=== PATIENT | female | born 2000 | race Caucasian/White ===

== ENCOUNTER 2018-08-22 09:10 | Outpatient (CLI) | payer OTHER ==
[~2018-08-22] VITALS: Ht 165.1 cm; Wt 54.6 kg
[2018-08-22] MEDS ORDERED: MONONESSA 35 MC1 TA1 PO (09:23)
[2018-08-22 09:24] VITALS: BP 107/80; PULSE 80
[2018-08-22 12:10] VITALS: BP 114/85; PULSE 58
--- NOTE | 2018-08-22 12:10 | NUR ---
pt back to room 10 post tilt table test. VSS and Ax0x3. Sitting in bd comfortably at this time.
[2018-08-22 12:15] VITALS: BP 111/75; PULSE 58
[2018-08-22 12:30] VITALS: BP 110/76; PULSE 59
[2018-08-22 12:45] VITALS: BP 103/67; PULSE 59
--- NOTE | 2018-08-22 12:45 | NUR ---
PT VSS AND AX0X3 POST TILT TABLE TEST. 20G IV REMOVED FROM LEFT AC AND DISCHARGE INSTRUCTIONS REVIEWED AND SIGNED. PT AND SAFELY ASSISTED OUT.
== END 2018-08-22 12:45 | disposition home or self-care (01) ==
LOC: COL.CAR 09:10
DX: R55 Syncope and collapse (principal); Z82.49 Family history of ischemic heart disease and other diseases of the circulatory system